=== PATIENT | male | born 1955 | race Caucasian/White ===

== ENCOUNTER 2022-06-12 17:04 | Emergency (ER) | payer OTHER ==
[~2022-06-12] VITALS: Ht 188 cm; Wt 112.2 kg
[2022-06-12] MEDS ORDERED: cloNIDine HCL 0.1 MG TAB ONE (17:12)
[2022-06-12] MEDS ORDERED: BACITRACIN TOP OINT 1 UD PKG TOP ONE (17:15)
[2022-06-12] MEDS ORDERED: HYDROcodone-ACET 10/325MG TAB PO ONE (17:15)
[2022-06-12] MEDS ORDERED: TETANUS-DIPTH-ACEL PERTUSSIS 0.5ML SYR Tdap IM ONE (17:15)
[2022-06-12] MEDS ORDERED: cloNIDine HCL 0.1 MG TAB PO ONE (17:15)
[2022-06-12] MEDS ORDERED: MAX35OO TOP (21:45)
[2022-06-12] MEDS ORDERED: IBUP800T26 PO (21:45)
[2022-06-12] MEDS ORDERED: AMOX-277 PO (21:45)
[2022-06-12] MEDS ORDERED: HYDR-4798 PO (21:45)
[2022-06-12 22:26] VITALS: BP 137/73
== END 2022-06-12 22:27 | disposition home or self-care (01) ==
LOC: ER 17:04
DX: S50.12XA Contusion of left forearm, initial encounter (principal); S50.11XA Contusion of right forearm, initial encounter; E78.5 Hyperlipidemia, unspecified; I10 Essential (primary) hypertension; F15.90 Other stimulant use, unspecified, uncomplicated; W54.0XXA Bitten by dog, initial encounter; Y93.89 Activity, other specified; Y92.89 Other specified places as the place of occurrence of the external cause; Y99.8 Other external cause status
CPT/HCPCS: 73090; 90471; 90715

== ENCOUNTER 2022-06-20 11:29 | Inpatient (IN) | payer OTHER, MEDICARE ==
[2022-06-20] VITALS (15 sets, daily range): BP systolic 40–119; BP diastolic 24–89
[~2022-06-20] VITALS: Ht 188 cm; Wt 104.3 kg
[~2022-06-20 11:29] MED LIST: AMOX-277 PO; HYDR-4798 PO; IBUP800T26 PO; MAX35OO TOP
[2022-06-20] MEDS ORDERED: SUCCINYLCHOLINE CHLORIDE 20 MG/ML 10ML VIAL IV ONE ×2 (11:45→11:48)
[2022-06-20] MEDS ORDERED: ETOMIDATE (2MG/ML) 20ML VIAL IV ONE ×2 (11:45→11:48)
[2022-06-20] MEDS ORDERED: MIDAZOLAM DRIP 50 mg/50mL 50 ML IV SCH (11:45)
[2022-06-20] MEDS ORDERED: MIDAZOLAM DRIP 50 mg/50mL 50 ML IV ONE (11:48)
[2022-06-20] MEDS ORDERED: NOREPINEPHRINE 8 MG/250ML KIT 250 ML IV ONE (12:19)
[2022-06-20] MEDS ORDERED: SODIUM CHLORIDE 0.9% 1,000 ML IV ONE ×2 (12:30)
[2022-06-20] MEDS ORDERED: SODIUM BICARBONATE 8.4 % INJ 50ML VIAL IV ONE ×6 (12:30→23:29)
[2022-06-20] MEDS ORDERED: PANTOPRAZOLE 40mg/50ML NS AE 50 ML IV ONE ×2 (12:30→16:00)
[2022-06-20] MEDS ORDERED: OCTREOTIDE ACETATE 500 MCG in SODIUM CHL 0.9% 99 ML IV SCH (12:30)
[2022-06-20] MEDS ORDERED: EPINEPHrine HCL 250 ML IV ONE ×2 (12:30→21:36)
[2022-06-20] MEDS ORDERED: cefTRIAXone 1GM/50ML D5W 50 ML IV ONE (12:30)
[2022-06-20] MEDS ORDERED: metroNIDAZOLE 500MG/100ML 100 ML IV ONE (12:30)
[2022-06-20 13:43] LABS: Eosinophils # (auto) 0.1 10 ^3/uL (0-0.8); Eosinophils % (auto) 0.4 % (0.0-7.0); Red Cell Distribution Width 14.4 % (11.8-14.3)
[2022-06-20 13:44] LABS: Basophils # (auto) 0.1 10 ^3/uL (0-0.2); Basophils % (auto) 0.7 % (0.0-2.0); Hematocrit 20.4 % (41.0-53.0); Lymphocytes # (auto) 4.3 10 ^3/uL (0.4-5.4); Lymphocytes % (auto) 22.7 % (10.0-50.0); Mean Corpuscular Volume 107.9 fL (80.0-100.0); Monocytes # (auto) 0.9 10 ^3/uL (0-1.3); Monocytes % (auto) 4.6 % (0.0-12.0); Neutrophils # (auto) 13.6 10 ^3/uL (1.6-8.6); Neutrophils % (auto) 71.6 % (37.0-80.0); Nucleated Red Blood Cells % 1.3 %; Red Blood Cells 1.89 10^6/uL (4.5-5.90)
[2022-06-20 14:00] LABS: Albumin 1.9 g/dL (3.4-5.0); Calcium 9.8 mg/dL (8.5-10.1)
[2022-06-20 14:01] LABS: Hemoglobin 5.3 g/dL (13.5-17.5)
[2022-06-20 14:04] LABS: INR 1.48 (0.9-1.15); Partial Thromboplastin Time 57.3 sec (24.6-33.4)
[2022-06-20 14:09] LABS: BUN/Creatinine Ratio 26.7; Bilirubin, Total 0.4 mg/dL (0.2-1.0); Total Protein 4.6 g/dL (6.4-8.2)
[2022-06-20 14:15] LABS: Lactic Acid w/Reflex 26.4 mmol/L (0.4-2.0)
[2022-06-20 14:49] LABS: Potassium 6.2 mmol/L (3.5-5.1)
[2022-06-20] MEDS: NOREPINEPHRINE 8 MG/250ML KIT 250 ML IV SCH ×2 (14:58→19:48)
[2022-06-20] MEDS ORDERED: SODIUM CHLORIDE 0.9% 1,000 ML IV SCH ×4 (15:00→21:00)
[2022-06-20] MEDS ORDERED: INSULIN LANTUS (GLARGINE) 1 /0.01ml (100units/ml) SC ONE (15:00)
[2022-06-20] MEDS ORDERED: InsuLIN R (HUMAN) 100 UNITS in SODIUM CHL 0.9% 99 ML IV SCH ×2 (15:00→20:15)
[2022-06-20] MEDS ORDERED: DEXTROSE (50%) 50ML SYRG IV PRN (15:00)
[2022-06-20] MEDS ORDERED: DOPamine 1600MCG/ML D5W 250 ML IV ONE (15:43)
[2022-06-20] MEDS ORDERED: PHENYLEPHRINE IV 250 ML IV ONE ×4 (15:44→21:31)
[2022-06-20] MEDS ORDERED: VASOPRESSIN 20 UNITS in SODIUM CHL 0.9% 99 ML IV SCH ×2 (15:45→16:00)
[2022-06-20] MEDS ORDERED: NITROGLYCERIN 0.4 MG SL TAB SL PRN (16:00)
[2022-06-20] MEDS ORDERED: PHENYLEPHRINE IV 250 ML IV SCH (16:00)
[2022-06-20] MEDS ORDERED: VANCOMYCIN PER PHARMACY 0 MG IV SCH (16:00)
[2022-06-20] MEDS ORDERED: PANTOPRAZOLE 80 MG in SODIUM CHL 0.9% 100 ML IV ONE (16:00)
[2022-06-20] MEDS ORDERED: MORPHINE SULFATE INJ 2 MG/ml SYRG IV PRN (16:00)
[2022-06-20 16:11] LABS: BUN/Creatinine Ratio 24.4; Calcium 9.4 mg/dL (8.5-10.1)
[2022-06-20] MEDS ORDERED: VANCOMYCIN 1GM/250ML 250 ML IV ONE (16:15)
[2022-06-20 16:32] LABS: Magnesium 3.2 mg/dL (1.6-2.6)
[2022-06-20 16:44] LABS: Potassium 6.5 mmol/L (3.5-5.1)
[2022-06-20 16:45] LABS: Hematocrit 25.7 % (41.0-53.0)
[2022-06-20] MEDS: ACCU-CHEK COMFORT CURVE STRIP VI SCH ×5 (16:58→21:07)
[2022-06-20 17:01] LABS: Hemoglobin 6.9 g/dL (13.5-17.5)
[2022-06-20 17:32] LABS: Cholesterol 69 mg/dL (< 200)
[2022-06-20 17:33] LABS: HDL Cholesterol 15 mg/dL (40-59); LDL Cholesterol 47 mg/dL (< 100); Triglycerides 392 mg/dL (< 150)
[2022-06-20] MEDS ORDERED: SODIUM BICARBONATE 50ML VIAL 150 ML in D5W 5% 1,000 ML IV SCH (19:00)
[2022-06-20] MEDS ORDERED: SODIUM CHLORIDE 0.9% 2,000 ML IV ONE (19:00)
[2022-06-20] MEDS ORDERED: NOREPINEPHRINE BITARTRATE 32 MG in SODIUM CHL 0.9% 218 ML IV SCH (20:00)
[2022-06-20] MEDS ORDERED: PHENYLEPHRINE INJ 80 MG in SODIUM CHL 0.9% 242 ML IV SCH (20:00)
[2022-06-20] MEDS ORDERED: EPINEPHrine HCL INJECTION 16 MG in D5W 5% 234 ML IV SCH (20:00)
[2022-06-20] MEDS ORDERED: DOPamine 1600MCG/ML D5W 250 ML IV SCH (20:00)
[2022-06-20] MEDS ORDERED: EPINEPHRINE HCL IV SCH (20:15)
[2022-06-20] MEDS ORDERED: D5W 5% IV SCH (20:15)
[2022-06-20 21:17] LABS: Calcium 9.4 mg/dL (8.5-10.1)
[2022-06-20 21:27] LABS: BUN/Creatinine Ratio 22.1
[2022-06-20] MEDS ORDERED: PHENYLEPHRINE HCL 10 MG/ML VL ONE ×2 (21:30→21:39)
[2022-06-20] MEDS ORDERED: EPINEPHrine HCL 1 MG/1 ML AMP ONE (21:37)
[2022-06-20] MEDS ORDERED: CEFEPIME 1GM/ 50ML 50 ML IV SCH (22:00)
[2022-06-21] MEDS ORDERED: INSULIN LANTUS (GLARGINE) 1 /0.01ml (100units/ml) SC SCH (10:00)
[2022-06-21] MEDS ORDERED: AMIODARONE HCL (50 MG/ ML) 3 ML VIAL IV ONE (13:31)
[2022-06-21] MEDS ORDERED: SODIUM BICARBONATE 8.4% INJ 50ML SYRINGE IV ONE (13:31)
[2022-06-21] MEDS ORDERED: MAGNESIUM SULF 50% 40 MEQ/10 ML VL IV ONE (13:31)
[2022-06-21] MEDS ORDERED: DOPamine 1600mCg/ml 400MG/250ml NSorD5 KIT/BAG IV ONE (13:31)
[2022-06-21] MEDS ORDERED: CALCIUM CHLOR(10%) 100MG/ML 10ML SYRINGE IV ONE (13:31)
[2022-06-21] MEDS ORDERED: DEXTROSE (50%) 50ML SYRG IV ONE (13:31)
[2022-06-21] MEDS ORDERED: EPINEPHrine HCL 1 MG/10 ML SYRG IV ONE (13:31)
== END 2022-06-20 23:32 | DRG 871 ==
LOC: EDBD 11:29 → ER 11:29 → TELE 15:58
PROVIDERS: ADMIT Nurse Practitioner Family; ATTEND Nurse Practitioner Acute Care
PROC: 06HN33Z Insertion of Infusion Device into Left Femoral Vein, Percutaneous Approach (ICD-10-PCS; principal; 2022-06-20)
PROC: 30233K1 Transfusion of Nonautologous Frozen Plasma into Peripheral Vein, Percutaneous Approach (ICD-10-PCS; 2022-06-20)
PROC: 30233N1 Transfusion of Nonautologous Red Blood Cells into Peripheral Vein, Percutaneous Approach (ICD-10-PCS; 2022-06-20)
PROC: 5A12012 Performance of Cardiac Output, Single, Manual (ICD-10-PCS; 2022-06-20)
PROC: 5A1935Z Respiratory Ventilation, Less than 24 Consecutive Hours (ICD-10-PCS; 2022-06-20)
PROC: 0BH17EZ Insertion of Endotracheal Airway into Trachea, Via Natural or Artificial Opening (ICD-10-PCS; 2022-06-20)
DX: A41.9 Sepsis, unspecified organism (principal); E11.10 Type 2 diabetes mellitus with ketoacidosis without coma; G93.41 Metabolic encephalopathy; J96.01 Acute respiratory failure with hypoxia; K72.00 Acute and subacute hepatic failure without coma; N17.0 Acute kidney failure with tubular necrosis; R65.21 Severe sepsis with septic shock; E46 Unspecified protein-calorie malnutrition; G93.1 Anoxic brain damage, not elsewhere classified; K92.2 Gastrointestinal hemorrhage, unspecified; D64.9 Anemia, unspecified; K21.9 Gastro-esophageal reflux disease without esophagitis; R57.8 Other shock; E78.5 Hyperlipidemia, unspecified; E87.5 Hyperkalemia; I10 Essential (primary) hypertension; E07.9 Disorder of thyroid, unspecified; I46.9 Cardiac arrest, cause unspecified; I48.91 Unspecified atrial fibrillation; R57.0 Cardiogenic shock; Z82.49 Family history of ischemic heart disease and other diseases of the circulatory system; Z68.29 Body mass index [BMI] 29.0-29.9, adult
CPT/HCPCS: 31500; 36415; 36556; 36600; 71045; 80048; 80053; 80061; 82010; 82805; 82962; 83036; 83605; 83735; 83880; 83930; 84100; 84443; 84484; 85014; 85018; 85025; 85610; 85730; 86850; 86900; 86901; 86920; 87040; 87070; 87205; 93005; 93306; 94002; 96361; 96365; 96368; 99291; C9113; G0378; J0171; J0330; J0696; J1815; J2250; J3490; J7060